=== PATIENT | male | born 1970 | race African-American/Black ===

== ENCOUNTER 2019-12-30 05:44 | Day surgery (SDC) | payer OTHER ==
[2019-12-30] MEDS ORDERED: LACTATED RINGERS 1,000 ML IV SCH (06:00)
[2019-12-30] MEDS ORDERED: MIDAZOLAM 2 MG/2 ML INJ IV NR (06:00)
--- NOTE | 2019-12-30 07:10 | Anesthesia Consultation ---
Anesthesia Consult and Med Hx Date of service: 12/30/19 - Airway Anesthetic Teeth Evaluation: Good ROM Head & Neck: Adequate Mental/Hyoid Distance: Adequate Mallampati Class: Class II Intubation Access Assessment: Good - Pulmonary Exam CTA: Yes - Cardiac Exam Cardiac Exam: RRR - Pre-Operative Health Status ASA Pre-Surgery Classification: ASA1 Proposed Anesthetic Plan: General - Central Nervous System Hx Psychiatric Problems: No - Other Systems Hx Alcohol Use: No Hx Substance Use: No Hx Cancer: No - Additional Comments Anesthesia Medical History Comments: used lang. line to medical history and informd concent
--- NOTE | 2019-12-30 07:11 | Anesthesia Day of Surgery ---
Anesthesia Day of Surgery - Day of Surgery Patient Examined: Yes Patient H&P Reviewed: Yes Patient is NPO: Yes
[2019-12-30] MEDS ORDERED: LIDOCAINE (1%) 10 MG/1 ML VIAL 20 ML MDV ONE (07:19)
[2019-12-30] MEDS ORDERED: BUPIVACAINE/PF (0.25%) 2.5 MG/ML 30 ML VIAL INFILTRATI ONE ×2 (07:20→07:58)
[2019-12-30] MEDS ORDERED: ceFAZolin/Water 2 GM/20 ML 2 GM/20 ML SYRINGE IV ONE (07:23)
[2019-12-30] MEDS ORDERED: fentaNYL 100 MCG/2 ML INJ IV PRN (07:30)
[2019-12-30] MEDS ORDERED: LIDOCAINE MPF (2%) 20 MG/1 ML VIAL 5 ML ONE (07:35)
[2019-12-30] MEDS ORDERED: PHENYLEPHRINE/NS 1,000 MCG/10 ML SYRINGE (OR USE) IV ONE (07:35)
[2019-12-30] MEDS ORDERED: MIDAZOLAM 2 MG/2 ML INJ ONE (07:35)
[2019-12-30] MEDS ORDERED: propofoL 200 MG/20 ML VIAL IV ONE (07:35)
[2019-12-30] MEDS ORDERED: KETAMINE/STERILE WATER 50 MG/ML SYRINGE ONE (07:36)
[2019-12-30] MEDS ORDERED: SODIUM CHLORIDE 0.9% IRR 1,500 ML BOTTLE IR ONE (07:59)
[2019-12-30] MEDS ORDERED: LIDOCAINE (1%) 10 MG/1 ML VIAL 20 ML MDV INFILTRATI ONE (07:59)
[2019-12-30] MEDS ORDERED: ceFAZolin/STERILE WATER 2 GM/20 ML SYRINGE IV NR (08:00)
--- NOTE | 2019-12-30 08:32 | Short Stay Summary ---
Short Stay Documentation Date of service: 12/30/19 - History Principal diagnosis: soft tissue mass posterior neck H&P: obtained from office - Allergies and Medications Current Medications: Allergies No Known Allergies Allergy (Verified 12/25/19 11:23) Home Medications Medication Instructions Recorded Confirmed Last Taken Type No Known Home Medications [No 12/25/19 12/25/19 Unknown History Reported Home Medications] Active Medications Cefazolin Sodium (Ancef/Sterile Water 2 Gm/20 Ml) 2 gm IV PREOP NR Fentanyl (Sublimaze) 50 mcg IV Q5MIN PRN PRN Reason: Pain , Severe (7-10) Stop: 12/30/19 23:00 Lactated Ringer's (Lactated Ringers) 1,000 mls @ 100 mls/hr IV DIRECT ALFREDO Stop: 12/30/19 23:59 Last Admin: 12/30/19 07:34 Dose: 100 mls/hr Documented by: Midazolam HCl (Versed) 2 mg IV PREOP NR Stop: 12/30/19 23:00 Last Admin: 12/30/19 07:35 Dose: 2 mg Documented by: - Brief post op/procedure progress note Date of procedure: 12/30/19 Pre-op diagnosis: soft tissue mass posterior neck Post-op diagnosis: same Procedure: excision soft tissue mass posterior neck Anesthesia: MAC, local Findings: 4cm soft tissue mass of posterior neck consistent with lipoma Surgeon: SHARON MUSTAFA Estimated blood loss: minimal Pathology: list (soft tissue mass posterior neck) Specimen disposition: to lab Condition: stable - Hospital course Hospital course: Pt observed in PACU and discharged to home in stable condition when criteria met - Disposition Condition at discharge: Good Disposition: DC-01 TO HOME OR SELFCARE Short Stay Discharge Plan Activity: no restrictions Diet: regular Wound: other (May remove outer dressing tomorrow. May shower tomorrow. Pat incision dry, do not scrub. No bath/hottubs/pools) Follow up with: PRIMARY CARE, [Primary Care Provider] - 7 Days SHARON MUSTAFA DO [Staff Physician] - 14 Days Prescriptions: HYDROcodone/APAP 5-325 [[place] 5/325] 1 each PO Q6HR PRN #10 tablet PRN Reason: Pain
[2019-12-30 10:08] VITALS: BP 118/74
--- NOTE | 2019-12-30 10:15 | Post Anesthesia Evaluation ---
- Post Anesthesia Evaluation Patient Participated: Yes Airway Patent: Yes Stable Respiratory Function: Yes Nausea/Vomiting: No Temp > 96.8F: Yes Pain Manageable: Yes Adequeate Hydration: Yes Anesthesia Complications: No
--- NOTE | 2019-12-30 15:05 | Operative Report ---
Operative Report Operative Report: Date of procedure: 12/30/19 Pre-op diagnosis: soft tissue mass posterior neck Post-op diagnosis: same Procedure: excision soft tissue mass posterior neck Anesthesia: MAC, local Findings: 4cm soft tissue mass of posterior neck consistent with lipoma Surgeon: SHARON MUSTAFA Estimated blood loss: minimal Pathology: list (soft tissue mass posterior neck) Specimen disposition: to lab Condition: stable HPI and indication: Patient is a 49-year-old male who presents to the surgery clinic for a mass on his posterior neck. It had grown in size and it was recommended that it be removed. All risk, benefits, alternatives surgery discus sed patient and questions answered. Consent obtained. Procedure in detail: Patient is was identified in the preoperative area and taken back to operating room, placed on operating room table in prone position. After anesthesia was induced the hairs were clipped and the area prepped and draped in usual sterile fashion. Timeout was performed. Local anesthetic was infiltrated to skin and subcutaneous tissue at the intended incision site. A 4 cm transverse incision was made over the area of the mass using a 15 blade. Dissection was carried down through skin and subcutaneous tissue using chanelle ctrocautery. Once the mass was encountered it was circumferentially dissected free from the surrounding tissue using a combination of blunt dissection with a hemostat and electrocautery. The mass appeared to be lobulated and fatty in nature. Once the mass was circumferentially dissected it was transected off the underlying tissue using electrocautery. The wound was then irrigated with saline and all the irrigant returned clear. Hemostasis was very carefully ensured. The incision was then closed in a layered fashion. The deep layer was closed with interrupted 3-0 Vicryl suture. The deep dermal layer was closed with interrupted 3-0 Vicryl suture. The skin was closed with running subcuticular 4-0 Monocryl stitch. Additional local anesthetic was infiltrated into the skin and subcutaneous tissue. The skin was cleansed and Dermabond applied to the incision. Once the Dermabond was dry, a Telfa was applied and secured with Tegaderm. The mass measured 4 cm. It was passed off the table as a specimen. It was consistent with a lipoma. At the end of the case, all sponge, instrument, sharp counts were correct x2. The patient was awoken from anesthesia transferred to the stretcher and taken to the PACU in stable condition.
== END 2019-12-30 05:45 | disposition home or self-care (01) ==
LOC: OR 05:44
PROVIDERS: ATTEND Surgery
DX: D17.0 Benign lipomatous neoplasm of skin and subcutaneous tissue of head, face and neck (principal); R22.1 Localized swelling, mass and lump, neck; M79.89 Other specified soft tissue disorders; Z79.899 Other long term (current) drug therapy; Z98.890 Other specified postprocedural states; Z20.828 Contact with and (suspected) exposure to other viral communicable diseases
CPT/HCPCS: 21552; 88304; J0690; J2250; J2370; J2704; J3490; J7120; U0003; 88307